=== PATIENT | male | born 2000 | race Caucasian/White ===

== ENCOUNTER 2020-10-24 14:27 | Emergency (ER) | payer OTHER ==
[~2020-10-24] VITALS: Ht 180.3 cm; Wt 77.1 kg
[2020-10-24] MEDS ORDERED: LIDOCAINE W/EPINEPHRINE 1% 20ML VIAL SC ONE (17:55)
[2020-10-24 18:36] VITALS: BP 136/81
== END 2020-10-24 18:37 | disposition home or self-care (01) ==
LOC: M ED 14:27
DX: S01.112A Laceration without foreign body of left eyelid and periocular area, initial encounter (principal); X58.XXXA Exposure to other specified factors, initial encounter; Y92.89 Other specified places as the place of occurrence of the external cause; Y93.9 Activity, unspecified; Y99.1 Military activity; Z88.0 Allergy status to penicillin

== ENCOUNTER 2021-01-03 20:24 | Emergency (ER) | payer OTHER ==
[~2021-01-03] VITALS: Ht 180.3 cm; Wt 76.4 kg
[2021-01-03] MEDS ORDERED: ALLE12TA31 PO (20:33)
[2021-01-03] MEDS ORDERED: IPRATROPIUM 0.5MG/ALBUTEROL 2.5MG INH SOL UD 3ML (DUONEB) NEB ONE (21:15)
[2021-01-04] MEDS ORDERED: PROAAER10 INH (01:36)
[2021-01-04] MEDS ORDERED: BREAMIS10 MC (01:36)
[2021-01-04 01:52] VITALS: BP 138/72
== END 2021-01-04 01:53 | disposition home or self-care (01) ==
LOC: M ED 20:24
DX: J30.2 Other seasonal allergic rhinitis (principal); R06.02 Shortness of breath; R06.2 Wheezing; J45.909 Unspecified asthma, uncomplicated; Z88.0 Allergy status to penicillin